=== PATIENT | female | born 1960 | race Caucasian/White ===

== ENCOUNTER → 2025-04-24 | Outpatient (CLI) | payer BC | END | disposition home or self-care (01) | LOC: CARD 04-22 08:30 | PROVIDERS: ATTEND Internal Medicine Cardiovascular Disease | DX: I51.7 Cardiomegaly (principal); R06.09 Other forms of dyspnea ==

== ENCOUNTER → 2025-04-30 | Outpatient (CLI) | payer BC | LOC: US 04:19 | PROVIDERS: ATTEND Internal Medicine Cardiovascular Disease | DX: I73.9 Peripheral vascular disease, unspecified (principal) ==